=== PATIENT | female | born 1945 | race Two or more races ===

== ENCOUNTER 2018-09-02 13:20 | Inpatient (IN) | payer OTHER ==
[~2018-09-02] VITALS: Ht 157.5 cm; Wt 86.2 kg
[2018-09-13] MEDS ORDERED: XANAX XR0.5 MG PO (15:05)
[2018-09-13] MEDS ORDERED: TOPROL XL50 M1 PO (15:05)
[2018-09-13] MEDS ORDERED: DIOVAN HCT 1601 EAC1 PO (15:06)
[2018-09-17] MEDS ORDERED: LOVENOX40 MG/0.4 SUBCUTANEO (08:20)
[2018-09-17] MEDS ORDERED: TRAM1TAB98 PO (08:21)
== END 2018-09-17 09:05 | disposition home or self-care (01) | DRG 741 ==
LOC: OB/GYN 09-15 06:34 → O/R 09-15 06:34 → SURH 09-15 09:45 → OB/GYN 09-15 13:23 → SURH 09-15 13:45 → OB/GYN 09-17 09:05
PROVIDERS: ADMIT Obstetrics & Gynecology
PROC: 0UQF4ZZ Repair Cul-de-sac, Percutaneous Endoscopic Approach (ICD-10-PCS; 2018-09-15)
PROC: 0USG4ZZ Reposition Vagina, Percutaneous Endoscopic Approach (ICD-10-PCS; 2018-09-15)
PROC: 0TJB8ZZ Inspection of Bladder, Via Natural or Artificial Opening Endoscopic (ICD-10-PCS; 2018-09-15)
PROC: 0UT9FZZ Resection of Uterus, Via Natural or Artificial Opening With Percutaneous Endoscopic Assistance (ICD-10-PCS; principal; 2018-09-15 09:45)
PROC: 0UT2FZZ Resection of Bilateral Ovaries, Via Natural or Artificial Opening With Percutaneous Endoscopic Assistance (ICD-10-PCS; 2018-09-15 09:45)
DX: C54.1 Malignant neoplasm of endometrium (principal); N85.02 Endometrial intraepithelial neoplasia [EIN]